=== PATIENT | male | born 1995 | race Caucasian/White ===

== ENCOUNTER 2019-04-21 14:32 | Inpatient (IN) | payer BC ==
[2019-04-21] MEDS ORDERED: IV NORMAL SALINE 1,000ML 1,000 ML IV ONE ×2 (14:45→15:45)
[2019-04-21] MEDS ORDERED: KETOROLAC 30 MG/ML VIAL. IVP ONE (15:00)
[2019-04-21 15:25] LABS: BASO % 0 % (0-3); EOS # 0.7 x10^3/uL (0.0-0.7); EOS % 4 % (0-3); HEMATOCRIT 42.9 % (39.0-53.0); HEMOGLOBIN 14.2 g/dL (13.0-17.5); LYMPH % 12 % (24-48); MEAN CORPUSCULAR HEMOGLOBIN 29 pg (25-35); MEAN CORPUSCULAR HGB CONC 33 g/dL (31-37); MEAN CORPUSCULAR VOLUME 89 fL (79-100); MONO # 1.4 x10^3/uL (0.0-1.1); MONO % 9 % (0-9); NEUT % 75 % (31-73); PLATELET COUNT 350 x10^3/uL (140-400); RED BLOOD COUNT 4.84 x10^6/uL (4.30-5.70); RED CELL DISTRIBUTION WIDTH 13.1 % (11.5-14.5); WHITE BLOOD COUNT 16.1 x10^3/uL (4.0-11.0)
[2019-04-21 15:29] LABS: ALBUMIN 3.7 g/dL (3.4-5.0); ALBUMIN/GLOBULIN RATIO 0.8 (1.0-1.7); GFR 94.3; POTASSIUM 3.9 mmol/L (3.5-5.1); TOTAL BILIRUBIN 0.7 mg/dL (0.2-1.0); TOTAL PROTEIN 8.6 g/dL (6.4-8.2)
--- NOTE | 2019-04-21 15:33 | RAD ---
CHEST PA LATERAL History: Cough Comparison: None. Findings: The cardiomediastinal silhouette is normal. There is bilateral central peribronchial thickening. There is patchy consolidation in the right middle lobe. On the lateral view there is peribronchial thickening in one of the lower lobes. No pleural effusion or pneumothorax is seen. There is no acute bone abnormality. IMPRESSION: 1. Right middle lobe bronchopneumonia. 2. Bilateral bronchitis. Electronically signed by: Zac Arcos MD (04/21/2019 3:29 PM) [id number]
[2019-04-21 15:50] LABS: INFLUENZA A PATIENT NEGATIVE (NEGATIVE); INFLUENZA B PATIENT NEGATIVE (NEGATIVE)
[2019-04-21 16:28] LABS: % BANDS 1 % (0-9); % EOS 6 % (0-5); % LYMPHS 13 % (24-48); % MONOS 6 % (0-10); % SEGS 74 % (35-66); PLT ESTIMATE ADEQUATE (ADEQUATE)
[2019-04-21] MEDS ORDERED: IPRATRPIUM/ALBUTEROL 0.5/2.5MG 3 ML NEBU. NEB ONE (16:30)
--- NOTE | 2019-04-21 17:05 | ED.ADGEN ---
Past History Past Medical History: Anxiety, Depression Past Surgical History: No Surgical History Alcohol Use: None Drug Use: None Adult General Chief Complaint Chief Complaint Cough, shortness of breath HPI HPI Patient is a 23-year-old -[place] male sent in by PCPs office persistent fever, cough, and increasing shortness breath with chest tightness with the past 2 days. Patient evaluated 2 days ago after several days of respiratory symptoms by his PCP. He was placed on Augmentin as completed 2 days of therapy. Patient states he had fever on her anterior earlier today. Denies history of asthma or reactive airway disease. No other acute symptoms or complaints. [] Review of Systems Review of Systems Review symptoms as per history of present illness. All other review symptoms are negative. All other systems were reviewed and found to be within normal limits, except as documented in this note. Current Medications Current Medications Current Medications Medications (Trade) Dose Ordered Sig/Killian Start Time Stop Time Status Last Admin Dose Admin Albuterol/ Ipratropium (Duoneb) 3 ml 1X ONCE 04/21/19 16:30 04/21/19 16:31 DC 04/21/19 16:30 3 ML Azithromycin 500 mg/Sodium Chloride 250 ml @ 250 mls/hr 1X ONCE 04/21/19 17:30 04/21/19 18:29 Ceftriaxone Sodium 1 gm/ Sodium Chloride 50 ml @ 100 mls/hr 1X ONCE 04/21/19 17:00 04/21/19 17:29 Ketorolac Tromethamine (Toradol 30mg Vial) 30 mg 1X ONCE 04/21/19 15:00 04/21/19 15:01 DC 04/21/19 14:58 30 MG Sodium Chloride 1,000 ml @ 1,000 mls/hr 1X ONCE 04/21/19 15:45 04/21/19 16:44 DC Allergies Allergies Allergies Coded Allergies Type Severity Reaction Last Updated Verified No Known Drug Allergies 04/21/19 No Physical Exam Physical Exam Constitutional: Clammy, tactile fever. Acutely ill appearing with coarse hacking cough.. [] HENT: Normocephalic, atraumatic, bilateral external ears normal, oropharynx moist, nose normal. [] Eyes: PERRLA, EOMI, conjunctiva normal, no discharge. [] Neck: Normal range of motion, no tenderness, supple, no stridor. [] Cardiovascular:Heart rate regular rhythm, no murmur [] Lungs & Thorax: Respirations, mild tachypnea, coarse diminished breath rales in lower lung rosas. [] Skin: Warm, dry. [] Back: No tenderness. [] Extremities: No tenderness, , no edema. [] Neurologic: Alert and oriented X 3, normal motor function, normal sensory function, no focal deficits noted. [] Psychologic: Affect normal, judgement normal, mood normal. [] Current Patient Data Vital Signs Vital Signs Date Time Temp Pulse Resp B/P (MAP) Pulse Ox O2 Delivery O2 Flow Rate FiO2 04/21/19 16:36 95 Room Air 04/21/19 14:46 99.5 115 26 Lab Results Laboratory Tests Test 04/21/19 14:52 White Blood Count 16.1 x10^3/uL (4.0-11.0) H Red Blood Count 4.84 x10^6/uL (4.30-5.70) Hemoglobin 14.2 g/dL (13.0-17.5) Hematocrit 42.9 % (39.0-53.0) Mean Corpuscular Volume 89 fL (79-100) Mean Corpuscular Hemoglobin 29 pg (25-35) Mean Corpuscular Hemoglobin Concent 33 g/dL (31-37) Red Cell Distribution Width 13.1 % (11.5-14.5) Platelet Count 350 x10^3/uL (140-400) Neutrophils (%) (Auto) 75 % (31-73) H Lymphocytes (%) (Auto) 12 % (24-48) L Monocytes (%) (Auto) 9 % (0-9) Eosinophils (%) (Auto) 4 % (0-3) H Basophils (%) (Auto) 0 % (0-3) Neutrophils # (Auto) 12.0 x10^3uL (1.8-7.7) H Lymphocytes # (Auto) 2.0 x10^3/uL (1.0-4.8) Monocytes # (Auto) 1.4 x10^3/uL (0.0-1.1) H Eosinophils # (Auto) 0.7 x10^3/uL (0.0-0.7) Basophils # (Auto) 0.0 x10^3/uL (0.0-0.2) Segmented Neutrophils % 74 % (35-66) H Band Neutrophils % 1 % (0-9) Lymphocytes % 13 % (24-48) L Monocytes % 6 % (0-10) Eosinophils % 6 % (0-5) H Platelet Estimate Adequate (ADEQUATE) Sodium Level 138 mmol/L (136-145) Potassium Level 3.9 mmol/L (3.5-5.1) Chloride Level 100 mmol/L (98-107) Carbon Dioxide Level 25 mmol/L (21-32) Anion Gap 13 (6-14) Blood Urea Nitrogen 11 mg/dL (8-26) Creatinine 1.0 mg/dL (0.7-1.3) Estimated GFR (Cockcroft-Gault) 94.3 BUN/Creatinine Ratio 11 (6-20) Glucose Level 96 mg/dL (70-99) Lactic Acid Level 1.6 mmol/L (0.4-2.0) Calcium Level 9.0 mg/dL (8.5-10.1) Total Bilirubin 0.7 mg/dL (0.2-1.0) Aspartate Amino Transferase (AST) 31 U/L (15-37) Alanine Aminotransferase (ALT) 36 U/L (16-63) Alkaline Phosphatase 79 U/L (46-116) Total Protein 8.6 g/dL (6.4-8.2) H Albumin 3.7 g/dL (3.4-5.0) Albumin/Globulin Ratio 0.8 (1.0-1.7) L Influenza Type A (Rapid) Negative (NEGATIVE) Influenza Type B (Rapid) Negative (NEGATIVE) EKG EKG [] Radiology/Procedures Radiology/Procedures [Chest x-ray: Right middle lobe bronchial pneumonia.] Course & Med Decision Making Course & Med Decision Making Pertinent Labs and Imaging studies reviewed. (See chart for details) [IV fluids, DuoNeb, steroids and antibiotics given with limited improvement. Dr. Raya to admit.] Final Impression Final Impression [1. RML infiltrate 2. acute bronchospasm] Dragon Disclaimer Dragon Disclaimer This electronic medical record was generated, in whole or in part, using a voice recognition dictation system. JENNIFER MKCEON DO Apr 21, 2019 17:05
[2019-04-21] MEDS ORDERED: methylPREDNISolone SOD SUCC PF 125 MG/2 ML VIAL. IV ONE (17:15)
[2019-04-21] MEDS ORDERED: AZITHROMYCIN 500 MG in IV NORMAL SALINE 250ML 250 ML IV ONE (17:30)
[2019-04-21] MEDS ORDERED: IV NORMAL SALINE 250ML 250 ML ONE (17:38)
[2019-04-21] MEDS ORDERED: IV NORMAL SALINE 50ML 50 ML ONE (17:38)
[2019-04-21] MEDS ORDERED: AZITHROMYCIN 500 MG VIAL. IV ONE (17:39)
[2019-04-21] MEDS ORDERED: cefTRIAXone SODIUM 1 GM VIAL ONE (17:39)
[2019-04-21] MEDS: methylPREDNISolone SOD SUCC PF 125 MG/2 ML VIAL. IV SCH (18:00)
--- NOTE | 2019-04-21 18:00 | NUR ---
The patient, IDALIA ALTAMIRANO, 23 y/o, M admitted by GEOFF BAUMAN MD, 117, was given written information regarding hospital policies, unit procedures and contact persons. Valuables were checked and left with the patient. Will continue to monitor.
[2019-04-21 20:10] VITALS: BP 125/66
[2019-04-21] MEDS: IPRATRPIUM/ALBUTEROL 0.5/2.5MG 3 ML NEBU. NEB SCH (22:14)
[2019-04-22 00:45] VITALS: BP 104/60
[2019-04-22] MEDS: methylPREDNISolone SOD SUCC PF 125 MG/2 ML VIAL. IV SCH ×4 (02:37→18:20)
[2019-04-22 06:04] VITALS: BP 122/72
[2019-04-22] MEDS: IPRATRPIUM/ALBUTEROL 0.5/2.5MG 3 ML NEBU. NEB SCH ×3 (06:06→16:33)
[2019-04-22] MEDS: LACTOBACILLUS RHAMNOSUS GG 1 CAPSULE. PO SCH ×2 (09:42→21:02)
[2019-04-22 10:19] VITALS: BP 133/84
[2019-04-22] MEDS: BENZONATATE 100 MG CAPSULE. PO SCH ×2 (14:05→21:02)
--- NOTE | 2019-04-22 15:03 | HP ---
ADMIT DATE: 04/21/2019 HISTORY OF PRESENT ILLNESS: The patient is a 23-year-old -[place] male patient who came to the Emergency Room on recommendation by his primary care physician with persistent fever, cough and increasing shortness of breath with chest tightness that has been going on for the past 2 days. He was evaluated 2 days ago after several days of respiratory symptoms by his primary care physician and was placed on Augmentin and completed 2 days of therapy. The patient stated that he has fever earlier on the day of admission; however, he denied any history of bronchial asthma or reactive airways. No other acute symptoms or complaints. He was evaluated in the Emergency Room, was found to have right middle lobe pneumonia, bilateral bronchitis and was admitted, started on IV ceftriaxone as well as Zithromax. His influenza A and B were negative. He also had diffuse bronchospasm for which he was started on bronchodilator as well as Solu-Medrol. PAST MEDICAL HISTORY: Significant for ADHD, anxiety, and depression. PAST SURGICAL HISTORY: Unremarkable. ALLERGIES: He has no known drug allergies. MEDICATIONS: He is currently on following medications: He stated that he is on a medication for anxiety as well as ADHD. FAMILY HISTORY: Noncontributory. SOCIAL HISTORY: He works at a [employer]. He does not smoke, drink alcohol or use any recreational drugs. REVIEW OF SYSTEMS: As per history of present illness. PHYSICAL EXAMINATION: GENERAL: On arrival to the Emergency Room, the patient was tachypneic. There was no pallor, jaundice, cyanosis or thyromegaly. No jugular venous distention. No limb edema. VITAL SIGNS: His heart rate was 115, blood pressure was 125/66, temperature was 99.5, respiratory rate was 26 and oxygen saturation was 95% on room air. HEAD, EYES, EARS, NOSE AND THROAT: Showed normocephalic, atraumatic. NECK: Supple. HEART: Showed normal first and second heart sounds with no gallop, rub or murmur. CHEST: Shows central trachea, equal bilateral chest expansion, diffuse wheezing, both lung rosas. NEUROLOGIC: He was alert, oriented x 3 with normal motor and sensory function. PSYCHIATRIC: Psychologically, the affect, judgment and mood were normal. LABORATORY DATA: While in the Emergency Room, he has had chest x-ray, which showed that he has right middle lobe bronchopneumonia as well as bilateral bronchitis. His lab work showed that his influenza A and B were negative. His white cell count was 16,100, hemoglobin 14, hematocrit 42, MCV 89 and platelet count 350,000 with normal manual differential. His chemistry showed a serum sodium of 138, potassium 3.9, chloride 100, bicarbonate 25, anion gap of 13, BUN 11, creatinine 1, estimated GFR was 94 mL per minute. His glucose was 96, lactic acid was 1.6, calcium was 9. Total bilirubin, AST, ALT, alkaline phosphatase were normal. Total protein was 8.6, albumin was 3.7. ASSESSMENT AND PLAN: In summary, this is a 23-year-old -[place] male patient who was admitted with community-acquired pneumonia for which he was started on ceftriaxone as well as Zithromax. Diffuse bronchospasm for which he was started on bronchodilator and steroids. We will obviously monitor him closely and decide on further management accordingly. GEOFF BAUMAN MD DR: LUX/erik JOB#: [id number] / [id number]
[2019-04-22 16:12] VITALS: BP 164/65
[2019-04-22] MEDS: AZITHROMYCIN 500 MG in IV NORMAL SALINE 250ML 250 ML IV SCH (18:20)
[2019-04-22 20:31] VITALS: BP 123/80
[2019-04-23] MEDS: methylPREDNISolone SOD SUCC PF 125 MG/2 ML VIAL. IV SCH ×5 (00:02→23:30)
--- NOTE | 2019-04-23 01:03 | PN ---
DATE: 04/22/2019 SUBJECTIVE: The patient was admitted yesterday with recurrent bouts of cough, fever, chest tightness and wheezing. X-ray showed that he has right middle lobe bronchopneumonia and his white cell count was high at 16,000. He was started on IV ceftriaxone and Zithromax as well as Solu-Medrol and bronchodilator and when I saw him today, he continued to have some cough and chest tightness, though has no fever today. PHYSICAL EXAMINATION: GENERAL: When I examined him, he was slightly tachypneic, but there is no pallor, jaundice, cyanosis or thyromegaly. No jugular venous distension. No limb edema. VITAL SIGNS: His heart rate was 92, blood pressure was 133/84, temperature was 97.8, respiratory rate was 20, and oxygen saturation was 96% on room air. HEAD, EYES, EARS, NOSE AND THROAT: Showed normocephalic, atraumatic. NECK: Supple. HEART: Showed normal first and second heart sounds. No gallop or murmur. CHEST: Shows central trachea, equal bilateral expansion, air entry, vesicular sounds with diffuse scattered rhonchi, could not appreciate any crepitation. ABDOMEN: Distended, soft, nontender. NEUROLOGIC: He was awake, alert, responding appropriately. All cranial nerves are intact. He moves extremities without difficulty. His intake was 1600, no output was recorded. No lab works done this morning. ASSESSMENT: Community-acquired pneumonia, anxiety and depression, attention deficit hyperactivity syndrome. PLAN: To send urine for legionella antigen as well as streptococcal antigen. Meanwhile, continue with IV ceftriaxone, IV Zithromax as well as bronchodilator and steroids. GEOFF BAUMAN MD DR: LUX/erik JOB#: [id number] / [id number]
[2019-04-23 06:00] VITALS: BP 117/81
[2019-04-23 07:33] LABS: HEMATOCRIT 41.1 % (39.0-53.0); HEMOGLOBIN 13.2 g/dL (13.0-17.5); RED BLOOD COUNT 4.57 x10^6/uL (4.30-5.70); RED CELL DISTRIBUTION WIDTH 13.4 % (11.5-14.5); WHITE BLOOD COUNT 26.5 x10^3/uL (4.0-11.0)
[2019-04-23 07:43] LABS: ALBUMIN 3.2 g/dL (3.4-5.0); ALBUMIN/GLOBULIN RATIO 0.7 (1.0-1.7); CALCIUM 8.5 mg/dL (8.5-10.1); CREATININE 0.8 mg/dL (0.7-1.3); POTASSIUM 4.1 mmol/L (3.5-5.1); TOTAL BILIRUBIN 0.2 mg/dL (0.2-1.0); TOTAL PROTEIN 7.7 g/dL (6.4-8.2)
[2019-04-23] MEDS: LACTOBACILLUS RHAMNOSUS GG 1 CAPSULE. PO SCH ×2 (09:14→19:51)
[2019-04-23] MEDS: BENZONATATE 100 MG CAPSULE. PO SCH ×3 (09:14→19:51)
[2019-04-23 11:25] VITALS: BP 133/71
--- NOTE | 2019-04-23 15:36 | RAD ---
PA and lateral chest x-ray HISTORY: Worsening shortness of breath. COMPARISON: Chest x-ray April 21, 2019. FINDINGS: Heart size normal. Mediastinal silhouette is normal. No pneumothorax. No pleural effusions. There is mild decreased density of the right middle lobe infiltrate since the prior exam with persistent opacity and air bronchograms remaining. Left lung clear. Bones unremarkable. IMPRESSION: Mild improvement with decreased density of the right middle lobe infiltrate. Electronically signed by: Quentin Todd MD (04/23/2019 3:33 PM) [facility]
[2019-04-23] MEDS: AZITHROMYCIN 500 MG in IV NORMAL SALINE 250ML 250 ML IV SCH (17:47)
[2019-04-23] MEDS: IPRATRPIUM/ALBUTEROL 0.5/2.5MG 3 ML NEBU. NEB SCH ×2 (17:54→20:34)
[2019-04-23 20:01] VITALS: BP 122/73
[2019-04-23] MEDS ORDERED: MONTELUKAST 10 MG TABLET. PO SCH (21:00)
--- NOTE | 2019-04-24 04:50 | NUR ---
Patient slept most of night, he was coughing most of night. Will continue to monitor.
[2019-04-24] MEDS: IPRATRPIUM/ALBUTEROL 0.5/2.5MG 3 ML NEBU. NEB SCH ×2 (04:55→09:46)
[2019-04-24] MEDS: methylPREDNISolone SOD SUCC PF 125 MG/2 ML VIAL. IV SCH ×2 (05:06→11:17)
[2019-04-24 05:34] VITALS: BP 131/77
[2019-04-24 06:33] LABS: HEMATOCRIT 38.8 % (39.0-53.0); HEMOGLOBIN 12.7 g/dL (13.0-17.5); RED BLOOD COUNT 4.37 x10^6/uL (4.30-5.70); RED CELL DISTRIBUTION WIDTH 13.2 % (11.5-14.5); WHITE BLOOD COUNT 24.1 x10^3/uL (4.0-11.0)
[2019-04-24 06:44] LABS: ALBUMIN/GLOBULIN RATIO 0.7 (1.0-1.7); CALCIUM 8.2 mg/dL (8.5-10.1); CREATININE 0.8 mg/dL (0.7-1.3); TOTAL BILIRUBIN 0.2 mg/dL (0.2-1.0); TOTAL PROTEIN 7.4 g/dL (6.4-8.2)
[2019-04-24] MEDS: BENZONATATE 100 MG CAPSULE. PO SCH (08:28)
[2019-04-24] MEDS: LACTOBACILLUS RHAMNOSUS GG 1 CAPSULE. PO SCH (08:28)
[2019-04-24 09:38] VITALS: BP 144/65
[2019-04-24] MEDS ORDERED: CEFD300C PO (11:23)
[2019-04-24] MEDS ORDERED: PRED20TA PO (11:23)
[2019-04-24] MEDS ORDERED: AZIT250T PO (11:23)
--- NOTE | 2019-04-24 12:16 | DS ---
DATE OF DISCHARGE: 04/24/2019 HOSPITAL COURSE: The patient is a 23-year-old -Citizen Of [place] male patient who admitted with recurrent bouts of cough, chest tightness and wheezing. X-ray was found to show middle lobe bronchopneumonia and his white cell count was high at 16,000. He was started on IV ceftriaxone and Zithromax as well as Solu-Medrol together with bronchodilator. He did actually very well. PHYSICAL EXAMINATION: GENERAL: When I saw him this morning, he was sitting comfortably in his bed, in no apparent respiratory distress. There was no pallor, jaundice, cyanosis or thyromegaly. No jugular venous distention. No limb edema. VITAL SIGNS: Her heart rate was 92, blood pressure was 144/65, temperature was 97.7, respiratory rate 20 and oxygen saturation was 96% on room air. HEAD, EYES, EARS, NOSE AND THROAT: Showed normocephalic, atraumatic. NECK: Supple. HEART: Showed normal first and second heart sounds. No gallop, rub or murmur. CHEST: Clear to auscultation. No crepitation or rhonchi. ABDOMEN: Distended, soft, nontender. NEUROLOGIC: He was awake, alert, responding appropriately. EXTREMITIES: He moves all extremities without difficulty, ambulates without assistance or assistive devices. LABORATORY WORKS: This morning showed a white cell count 24,000, hemoglobin 12.7, hematocrit 38.8, MCV 89 and platelet count 385,000. His chemistry showed a serum sodium 142, potassium 4, chloride 108, bicarbonate 23, anion gap of 11, BUN 12, creatinine 0.8, estimated GFR was 122 mL per minute, her glucose 121, calcium was 8.2. Total bilirubin, AST, ALT, alkaline phosphatase were normal. Total protein was 7.4, albumin 3. Her chest x-ray showed improvement to decrease density of the right middle lobe infiltrate. DISCHARGE MEDICATIONS: The patient would be discharged home to continue on Z-DANIEL, cefdinir 300 mg twice a day for 5 more days as well as tapering course of steroids. DISCHARGE INSTRUCTIONS: He was advised to not to go back to work until 04/28/2019. FINAL DISCHARGE DIAGNOSES: 1. Community-acquired pneumonia. 2. Anxiety and depression. 3. Attention deficit hyperactivity disorder. GEOFF BAUMAN MD DR: Mickie JOB#: [id number] / [id number]
--- NOTE | 2019-04-24 12:22 | NUR ---
Discharge Pt discharged home. VSS. NAD. Denies pain. Medications and discharge instructions reviewed with patient. Questions answered. All belongings accounted for. PIV removed without complications.
== END 2019-04-24 12:24 | disposition home or self-care (01) | DRG 194 ==
LOC: ER 14:32 → 1 SOUTH 18:36
PROVIDERS: ADMIT Internal Medicine; ATTEND Internal Medicine
DX: J18.0 Bronchopneumonia, unspecified organism (principal); R65.10 Systemic inflammatory response syndrome (SIRS) of non-infectious origin without acute organ dysfunction; F32.9 Major depressive disorder, single episode, unspecified; F41.9 Anxiety disorder, unspecified; F90.9 Attention-deficit hyperactivity disorder, unspecified type; Z79.899 Other long term (current) drug therapy
CPT/HCPCS: 36415; 71046; 80053; 83605; 85007; 85025; 85027; 87040; 87449; 87804; 94640; 94760; 96361; 96365; 96368; 96375; J0456; J0696; J1885; J2930; J7050; J7620; 99285-25; J7030